=== PATIENT | male | born 1995 | race Caucasian/White ===

== ENCOUNTER 2016-12-08 19:21 | Emergency (ER) | payer BC ==
[2016-12-08 19:54] VITALS: RESP 16
--- NOTE | 2016-12-08 20:38 | EDPHY ---
H & P Time Seen by Provider: 12/08/16 20:03 HPI/ROS: CHIEF COMPLAINT: Discharge and swelling left pinky toe HISTORY OF PRESENT ILLNESS: 21-year-old immunocompetent male with up-to-date tetanus complaining of left 5th/pinky toe tenderness, erythema, swelling for the past several days. Last evening he used [employer] knife and puncture the area with release of purulent discharge. He notes continued erythema and pain with new development of lymphangitic streaking. He is able to bear weight. Unsure whether he experience trauma or not. No fever no chills. No nausea or vomiting. PHYSICAL EXAM (Prior to examination, patient consented to physical exam, hands were washed and my usual and customary physical exam procedures followed) 1) GENERAL: Well-developed, well-nourished, alert and oriented. Appears to be in no acute distress. 2) HEAD: Normocephalic 3) HEENT: sclera anicteric 4) LUNGS: Breathing comfortably. 5) SKIN: Lymphangitic streaking extending from his left 5th toe on the dorsal aspect to his ankle. There is no crepitus. There is evidence of paronychia with no evidence of felon. Compartments are soft. 6) MUSCULOSKELETAL: tender to palpation paronychia region. 7) NEUROLOGIC: Full sensation DIFFERENTIAL DIAGNOSIS: in no particular include but limited to osteomyelitis , fracture, paronychia, felon Smoking Status: Current some day smoker Constitutional: Initial Vital Signs Temperature (C) 37.1 C 12/08/16 19:50 Heart Rate 110 H 12/08/16 19:50 Respiratory Rate 16 12/08/16 19:50 Blood Pressure 102/64 12/08/16 19:50 O2 Sat (%) 94 12/08/16 19:50 O2 Delivery Mode Room Air Allergies/Adverse Reactions: No Known Allergies Allergy (Unverified 12/08/16 19:55) Home Medications: Medication Instructions Recorded Cephalexin [Keflex] 500 mg PO QID 10 Days 12/08/16 FOCALIN 12/08/16 Sulfamethox/Tmp 800/160 mg 1 tab PO BID@1000,2200 10 Days 12/08/16 [Bactrim Ds] MDM/Departure - MDM ED Course/Re-evaluation: I evaluated the patient. I recommended x-ray which he declines. I believe him to have decision-making capacity. He understands the risks of declining this. He has evidence of paronychia with lymphangitic streaking extending to his ankle. The area was incised and drained in a scant amount of purulent discharge was released. I am starting the patient on dual antibiotic therapy. his tetanus is up-to-date. Doubt felon. Doubt necrotizing fasciitis. - Depart Disposition: Home, Routine, Self-Care Clinical Impression: Paronychia Qualifiers: Laterality: left Qualified Code(s): L03.012 - Cellulitis of left finger Condition: Good Instructions: Paronychia (ED) Additional Instructions: Return to the ER if you develop redness, swelling, discharge, warmth to the wound, red streaks going up your leg, or any other symptoms that concern you. Prescriptions: Cephalexin [Keflex] 500 mg PO QID 10 Days Sulfamethox/Tmp 800/160 mg [Bactrim Ds] 1 tab PO BID@1000,2200 10 Days Referrals: [facility]. [Clinic] - 1-2 days without fail
[2016-12-08 20:55] VITALS: BP 122/78; PULSE 95; TEMP 98.6; O2SAT 98
== END 2016-12-08 20:55 | disposition home or self-care (01) ==
DX: L03.012 Cellulitis of left finger (principal); F17.200 Nicotine dependence, unspecified, uncomplicated